=== PATIENT | male | born 1945 | race Caucasian/White ===

== ENCOUNTER → 2016-11-19 | Outpatient (CLI) | payer MEDICARE ==
[~2016-11-19] MED LIST: ASPI-621 PO; ATEN25TA PO; ATOR40TA78 PO; CLOP75TA PO; DABI150C PO; DOCU-30 PO; FURO-92 PO; HYDR-3144 PO; LISI-167 PO; OMNIPAQUE 350 MG/ML, 150 ML BOTTLE ONE; PANT40TA5 PO; POTA20TA14 PO
== END | disposition home or self-care (01) ==
LOC: RAD 11:39
PROVIDERS: ATTEND Nurse Practitioner Family
DX: N20.0 Calculus of kidney (principal); K80.20 Calculus of gallbladder without cholecystitis without obstruction; M43.06 Spondylolysis, lumbar region
CPT/HCPCS: 36415; 74178; 82565; Q9967

== ENCOUNTER → 2017-04-27 | Outpatient (CLI) | payer MEDICARE ==
[~2017-04-27] MED LIST changes: +ATOR-2 PO; +DOCU-131 PO; -DOCU-30 PO; +DUTA0.5C PO; -HYDR-3144 PO; +HYDR-3245 PO; +MAGNESIUM PO; -OMNIPAQUE 350 MG/ML, 150 ML BOTTLE ONE; +TAMS0.4C2 PO; +VITAMIN D3 PO
[2017-04-27 12:46] LABS: PATH.CAST-FLAG NOT PRESENT; SPERM-FLAG NOT PRESENT; SRC-FLAG NOT PRESENT; XTAL-FLAG NOT PRESENT; YLC-FLAG NOT PRESENT
== END | disposition home or self-care (01) ==
LOC: STAR 10:07
PROVIDERS: ATTEND Urology
DX: Z01.818 Encounter for other preprocedural examination (principal); R33.9 Retention of urine, unspecified
CPT/HCPCS: 81001; 87077; 87086; 93005

== ENCOUNTER 2017-05-12 07:16 | Day surgery (SDC) | payer MEDICARE ==
[~2017-05-12] VITALS: Ht 172.7 cm; Wt 94.0 kg
[2017-05-12] MEDS ORDERED: CEPH-368 PO (07:57)
[2017-05-12 07:58] VITALS: BP 134/82
[2017-05-12] MEDS ORDERED: LACTATED RINGERS 1,000 ML IV SCH (08:01)
[2017-05-12] MEDS ORDERED: LIDOCAINE 1%, 2ML ONE (08:09)
[2017-05-12] MEDS ORDERED: LIDOCAINE 1%, 2ML SQ PRN (08:30)
[2017-05-12] MEDS ORDERED: DEXAMETHASONE 4 MG/ML, 1ML ONE (10:42)
[2017-05-12] MEDS ORDERED: PROPOFOL 10 MG/ML, 20ML ONE (10:42)
[2017-05-12] MEDS ORDERED: SUCCINYLCHOLINE 20 MG/ML, 10ML ONE (10:42)
[2017-05-12] MEDS ORDERED: PHENYLEPHRINE 10 MG/ML ONE (10:42)
[2017-05-12] MEDS ORDERED: ONDANSETRON 2MG/ML, 2ML ONE (10:42)
[2017-05-12] MEDS ORDERED: EPHEDRINE 50 MG/ML, 1ML ONE (10:42)
[2017-05-12] MEDS ORDERED: CIPROFLOXACIN/PMX 400MG/200ML 200 ML IVPB ONE (10:42)
[2017-05-12] MEDS ORDERED: FENTANYL PF 100 MCG/2ML ONE (10:43)
[2017-05-12] MEDS ORDERED: MIDAZOLAM 1 MG/ML, 2ML ONE (10:43)
[2017-05-12] MEDS ORDERED: PROMETHAZINE 25 MG/ML, 1ML IV PRN (11:30)
[2017-05-12] MEDS ORDERED: MIDAZOLAM 1 MG/ML, 2ML IV PRN (11:30)
[2017-05-12] MEDS ORDERED: hydrALAzine 20 MG/ML, 1ML IV PRN (11:30)
[2017-05-12] MEDS ORDERED: FENTANYL PF 100 MCG/2ML IV PRN (11:30)
[2017-05-12] MEDS ORDERED: ONDANSETRON 2MG/ML, 2ML IVPush PRN (11:30)
[2017-05-12] MEDS ORDERED: LABETALOL 5MG/ML, 20ML IV PRN (11:30)
[2017-05-12] MEDS ORDERED: ALBUTEROL SULFATE 2.5 MG/3 ML NPPB PRN (11:30)
[2017-05-12] MEDS ORDERED: HYDROmorphone 1 MG/ML, 1ML IV PRN (11:30)
[2017-05-12] MEDS ORDERED: OXYcodone 5 MG/5 ML ORAL.SOL UDC PO PRN (11:30)
[2017-05-12] MEDS ORDERED: MEPERIDINE/PF 25MG/0.5ML IVPush PRN (11:30)
[2017-05-12] MEDS ORDERED: OXYcodone 5 MG/5 ML ORAL.SOL UDC ONE (12:38)
== END 2017-05-12 15:15 | disposition home or self-care (01) ==
LOC: OUT 07:16
PROVIDERS: ATTEND Urology
DX: N40.0 Benign prostatic hyperplasia without lower urinary tract symptoms (principal); I10 Essential (primary) hypertension; E78.5 Hyperlipidemia, unspecified; I25.10 Atherosclerotic heart disease of native coronary artery without angina pectoris; Z95.1 Presence of aortocoronary bypass graft; Z79.82 Long term (current) use of aspirin
CPT/HCPCS: 52630; 88305; J0330; J0744; J1100; J2250; J2370; J2405; J2704; J3010; J3490; J7120

== ENCOUNTER → 2017-11-02 | Outpatient (CLI) | payer MEDICARE ==
[~2017-11-02] MED LIST changes: +APIX5TAB PO; +CEPH-368 PO
[2017-11-02 15:20] LABS: MICROSCOPIC NOT IND
== END | disposition home or self-care (01) ==
LOC: STAR 14:24
PROVIDERS: ATTEND Urology
DX: Z01.818 Encounter for other preprocedural examination (principal); I44.0 Atrioventricular block, first degree; N32.0 Bladder-neck obstruction
CPT/HCPCS: 81003; 87086; 93005

== ENCOUNTER 2017-11-06 12:50 | Day surgery (SDC) | payer MEDICARE ==
[~2017-11-06] VITALS: Ht 172.7 cm; Wt 95.0 kg
[2017-11-06] MEDS ORDERED: LACTATED RINGERS 1,000 ML IV SCH (13:27)
[2017-11-06 14:00] VITALS: BP 148/90
[2017-11-06] MEDS ORDERED: FENTANYL PF 250 MCG/5ML ONE (14:25)
[2017-11-06] MEDS ORDERED: SUCCINYLCHOLINE 20 MG/ML, 10ML ONE ×2 (14:29)
[2017-11-06] MEDS ORDERED: NEOSTIGMINE 1 MG/ML, 10ML ONE (14:29)
[2017-11-06] MEDS ORDERED: ONDANSETRON 2MG/ML, 2ML ONE (14:29)
[2017-11-06] MEDS ORDERED: PROPOFOL 10 MG/ML, 20ML ONE (14:29)
[2017-11-06] MEDS ORDERED: GLYCOPYRROLATE 0.2MG/1ML, 5ML ONE (14:29)
[2017-11-06] MEDS ORDERED: DEXAMETHASONE 4 MG/ML, 1ML ONE (14:29)
[2017-11-06] MEDS ORDERED: CEFAZOLIN 1,000 MG ONE (14:29)
[2017-11-06] MEDS ORDERED: hydrALAzine 20 MG/ML, 1ML IV PRN (15:00)
[2017-11-06] MEDS ORDERED: FENTANYL PF 100 MCG/2ML IV PRN (15:00)
[2017-11-06] MEDS ORDERED: ACETAMINOPHEN 325 MG TABLET PO PRN (15:00)
[2017-11-06] MEDS ORDERED: HYDROcodone/APAP 7.5-325MG/15ML UDC PO PRN (15:00)
[2017-11-06] MEDS ORDERED: PROMETHAZINE 25 MG/ML, 1ML IV PRN (15:00)
[2017-11-06] MEDS ORDERED: MORPHINE SULFATE 4 MG/ML, 1ML IVPush PRN (15:00)
[2017-11-06] MEDS ORDERED: LABETALOL 5MG/ML, 20ML IV PRN (15:00)
[2017-11-06] MEDS ORDERED: ONDANSETRON ODT 8 MG PO PRN (15:00)
[2017-11-06] MEDS ORDERED: OXYcodone 5 MG/5 ML ORAL.SOL UDC PO PRN (15:00)
[2017-11-06] MEDS ORDERED: EPHEDRINE 50 MG/ML, 1ML ONE (15:37)
[2017-11-06] MEDS ORDERED: CIPROFLOXACIN 400MG/200ML PMX ONE (15:37)
== END 2017-11-06 19:10 | disposition home or self-care (01) ==
LOC: OUT 12:50
PROVIDERS: ATTEND Urology
DX: N21.0 Calculus in bladder (principal); N32.0 Bladder-neck obstruction; N35.9 Urethral stricture, unspecified; Z87.39 Personal history of other diseases of the musculoskeletal system and connective tissue; I25.10 Atherosclerotic heart disease of native coronary artery without angina pectoris; I10 Essential (primary) hypertension; E78.00 Pure hypercholesterolemia, unspecified; Z86.73 Personal history of transient ischemic attack (TIA), and cerebral infarction without residual deficits; Z98.890 Other specified postprocedural states; Z79.82 Long term (current) use of aspirin
CPT/HCPCS: 52317; 72170; 76000; C1769; J0330; J0690; J0744; J1100; J2405; J2704; J2710; J3010; J3490

== ENCOUNTER → 2020-11-16 | Outpatient (CLI) | payer MEDICARE ==
[~2020-11-16] MED LIST changes: -ASPI-621 PO; +ASPI81TA45 PO; -HYDR-3245 PO; +HYDR1TAB53 PO; -PANT40TA5 PO; +PANT40TA6 PO
== END | disposition home or self-care (01) ==
LOC: CFH 12:30
PROVIDERS: ATTEND Physician Assistant Medical
DX: I08.3 Combined rheumatic disorders of mitral, aortic and tricuspid valves (principal)
CPT/HCPCS: 93306